=== PATIENT | female | born 1940 | race Caucasian/White ===

== ENCOUNTER 2018-11-29 09:37 | Inpatient (IN) ==
[2018-11-29 10:31] LABS: Basophils # 0.1 10*3/uL (0.0-0.2); Basophils % 1.8 % (0.0-0.8); Eosinophils # 0.7 10*3/uL (0.0-0.87); Eosinophils % 10.5 % (0.00-10.9); Hematocrit 30.9 VOL% (35.7-47.0); Hemoglobin 8.8 GM/DL (12.0-16.0); Immature Granulocytes % 0.3 %; Immature Granulocytes Absolute 0.02 #; Lymphocytes # 1.9 10*3/uL (1.4-4.0); Lymphocytes % 28.2 % (21.3-54.2); Mean Corpuscular HGB Conc 28.5 GM/DL (32-36); Mean Platelet Volume 10.2 FL (9.6-12.0); Monocytes % 8.1 % (1.7-12.7); Neutrophils % 51.1 % (38.7-73.9); Platelet Count 339 T/CUMM (130-400); Red Blood Count 4.68 MC/CUMM (3.8-5.5); Red Cell Distribution Width 23.1 % (9.3-17.3); White Blood Count 6.6 T/CUMM (4-12)
[2018-11-29 10:38] LABS: PT Patient Result 10.6 SECS; Partial Thromboplastin Time 22.9 SECS (0-40)
[2018-11-29 10:49] LABS: Alanine Aminotransferase 30 U/L (13-56); Albumin 3.7 G/DL (3.4-5.0); Alkaline Phosphatase 40 U/L (45-117); Aspartate Amino Transferase 20 U/L (0-37); Bilirubin,Total < 0.39 MG/DL (0.2-1.0); Blood Urea Nitrogen 20 MG/DL (7-18); Calcium 9.2 MG/DL (8.5-10.1); Glucose 192 MG/DL (74-106); Osmolality,Calculated 284.5 MOS/KG (273-304); Troponin I < 0.015 NG/ML (0.00-0.045)
[2018-11-29 10:54] LABS: Band Neutrophils 2 % (0-10); Eosinophils 16 % (0-10); Lymphocytes 28 % (20-55); Platelet Estimate Normal; Segmented Neutrophils 49 % (50-85); Total Cells Counted 100
[2018-11-29 10:55] LABS: Anisocytosis 1+; Poikilocytosis Slight
[2018-11-29 11:05] LABS: Apearance,Urine CLOUDY (Clear); Bilirubin,Urine Negative (Negative); Blood, Urine Negative (Negative); Glucose,Urine (UA) Negative (Negative); Hyaline Casts,Urine 4 /LPF (0-3); Ketones,Urine 5 mg/dL (Negative); Mucus,Urine Occasional /LPF (Occasional); Nitrite,Urine Negative (Negative); Protein,Urine Negative; RBC,Urine 2 /HPF (0-4); Squamous Epithelial Cell,Urine Occasional /HPF (0-10); Urine Color Yellow (Yellow); Urine Specific Gravity 1.024 (1.001-1.035); Urine Urobilinogen < 2.0 EU/DL (0.2-1.0); WBC,Urine 6 /HPF (0-6)
[2018-11-29 11:26] LABS: Barbiturates Screen,Urine Negative (Negative); Benzodiazepines Screen,Urine Negative (Negative); Cannabinoid Screen,Urine Negative (Negative); Opiate Screen,Urine Positive (Negative); Phencyclidine Screen,Urine Negative (Negative)
[2018-11-29] MEDS ORDERED: ONDANSETRON 4 MG/2 ML VIAL IV PRN (13:00)
[2018-11-29] MEDS ORDERED: ACETAMINOPHEN 325 MG TABLET PO PRN (13:00)
[2018-11-29] MEDS ORDERED: BISACODYL 5 MG TABLET PO PRN (13:00)
[2018-11-29] MEDS ORDERED: DOCUSATE SODIUM 100 MG CAPSULE PO PRN (13:00)
[2018-11-29] MEDS: SODIUM CHLORIDE 0.9% 1,000 ML IV SCH (13:30)
[2018-11-29] MEDS: PANTOPRAZOLE 40 MG TABLET PO SCH (13:30)
[2018-11-29 13:51] LABS: Risk Ratio 2.77; Thyroid Stimulating Hormone 0.469 uIU/ml (0.358-3.74); VLDL CHOLESTEROL 40.6 MG/DL
[2018-11-29] MEDS: CLOPIDOGREL 75 MG TABLET PO SCH (15:53)
[2018-11-29] MEDS: CALCIUM (CARBONATE) 600 MG TABLET PO SCH (16:16)
[2018-11-29] MEDS: NITROFURANTOIN MACROCRYSTALS 50 MG CAPSULE PO SCH (20:29)
[2018-11-29] MEDS: APIXABAN 2.5 MG TABLET PO SCH (20:36)
[2018-11-29] MEDS: GABAPENTIN 300 MG CAPSULE PO SCH (20:37)
[2018-11-29] MEDS ORDERED: SIMVASTATIN 20 MG TABLET PO SCH (21:00)
[2018-11-30 05:38] LABS: Basophils # 0.1 10*3/uL (0.0-0.2); Basophils % 1.7 % (0.0-0.8); Eosinophils # 0.7 10*3/uL (0.0-0.87); Eosinophils % 10.3 % (0.00-10.9); Immature Granulocytes % 0.3 %; Immature Granulocytes Absolute 0.02 #; Lymphocytes # 2.9 10*3/uL (1.4-4.0); Lymphocytes % 40.5 % (21.3-54.2); Mean Corpuscular HGB Conc 28.6 GM/DL (32-36); Mean Platelet Volume 10.2 FL (9.6-12.0); Neutrophils % 38.2 % (38.7-73.9); Platelet Count 354 T/CUMM (130-400); Red Blood Count 4.24 MC/CUMM (3.8-5.5); Red Cell Distribution Width 23.1 % (9.3-17.3); White Blood Count 7.2 T/CUMM (4-12)
[2018-11-30 06:02] LABS: Eosinophils 8 % (0-10); Hypochromasia 1+; Lymphocytes 44 % (20-55); Ovalocytes Slight; Platelet Estimate Adequate; Segmented Neutrophils 41 % (50-85); Total Cells Counted 100
[2018-11-30 06:03] LABS: Calcium 8.8 MG/DL (8.5-10.1)
[2018-11-30] MEDS: SODIUM CHLORIDE 0.9% 1,000 ML IV SCH ×2 (06:42→20:22)
[2018-11-30] MEDS: LEVOTHYROXINE 125 MCG TABLET PO SCH (06:42)
[2018-11-30] MEDS ORDERED: PROBENECID/COLCHICINE 500-0.5 MG TABLET PO SCH (09:00)
[2018-11-30] MEDS: APIXABAN 2.5 MG TABLET PO SCH ×2 (10:02→20:19)
[2018-11-30] MEDS: LOSARTAN/HCTZ 50-12.5 MG TABLET PO SCH (10:02)
[2018-11-30] MEDS: ASPIRIN EC 81 MG TABLET PO SCH (10:02)
[2018-11-30] MEDS: LOSARTAN 50 MG TABLET PO SCH (10:02)
[2018-11-30] MEDS: ROSUVASTATIN 20 MG TABLET PO SCH (10:02)
[2018-11-30] MEDS: PANTOPRAZOLE 40 MG TABLET PO SCH (10:03)
[2018-11-30] MEDS: CALCIUM (CARBONATE) 600 MG TABLET PO SCH (14:04)
[2018-11-30] MEDS: CLOPIDOGREL 75 MG TABLET PO SCH (14:04)
[2018-11-30] MEDS: NITROFURANTOIN MACROCRYSTALS 50 MG CAPSULE PO SCH (20:19)
[2018-11-30] MEDS: GABAPENTIN 300 MG CAPSULE PO SCH (20:19)
[2018-12-01 05:30] LABS: Basophils # 0.1 10*3/uL (0.0-0.2); Basophils % 1.9 % (0.0-0.8); Eosinophils # 0.6 10*3/uL (0.0-0.87); Eosinophils % 10.8 % (0.00-10.9); Hematocrit 24.2 VOL% (35.7-47.0); Hemoglobin 6.9 GM/DL (12.0-16.0); Immature Granulocytes % 0.3 %; Immature Granulocytes Absolute 0.02 #; Lymphocytes # 2.3 10*3/uL (1.4-4.0); Lymphocytes % 38.9 % (21.3-54.2); Mean Corpuscular HGB Conc 28.5 GM/DL (32-36); Mean Corpuscular Volume 65.1 FL (87-102); Monocytes % 8.9 % (1.7-12.7); Neutrophils % 39.2 % (38.7-73.9); Platelet Count 278 T/CUMM (130-400); Red Blood Count 3.72 MC/CUMM (3.8-5.5); Red Cell Distribution Width 22.5 % (9.3-17.3); White Blood Count 5.8 T/CUMM (4-12)
[2018-12-01 05:57] LABS: Hypochromasia 2+; Ovalocytes Slight; Platelet Estimate Adequate
[2018-12-01 06:00] LABS: Osmolality,Calculated 287.8 MOS/KG (273-304)
[2018-12-01] MEDS: LEVOTHYROXINE 125 MCG TABLET PO SCH (06:18)
[2018-12-01] MEDS: SODIUM CHLORIDE 0.9% 1,000 ML IV SCH (09:55)
[2018-12-01] MEDS: ROSUVASTATIN 20 MG TABLET PO SCH (09:55)
[2018-12-01] MEDS: APIXABAN 2.5 MG TABLET PO SCH (09:55)
[2018-12-01] MEDS: PANTOPRAZOLE 40 MG TABLET PO SCH (09:55)
[2018-12-01] MEDS: LOSARTAN/HCTZ 50-12.5 MG TABLET PO SCH (09:55)
[2018-12-01] MEDS: LOSARTAN 50 MG TABLET PO SCH (09:55)
[2018-12-01] MEDS: ASPIRIN EC 81 MG TABLET PO SCH (09:55)
[2018-12-01] MEDS: CLOPIDOGREL 75 MG TABLET PO SCH (16:01)
[2018-12-01] MEDS: CALCIUM (CARBONATE) 600 MG TABLET PO SCH (16:01)
[2018-12-01 16:39] VITALS: BP 158/81
== END 2018-12-01 18:26 | disposition home or self-care (01) | DRG 66 ==
LOC: N.EDINP 09:37 → N.ED 09:37 → SUATTDRO 12:49 → N.2E 15:56
PROVIDERS: ADMIT Internal Medicine

== ENCOUNTER 2019-01-04 11:34 | Inpatient (IN) ==
[2019-01-04] MEDS ORDERED: SODIUM CHLORIDE 0.9% 1,000 ML IV PRN (13:01)
[2019-01-04 14:19] LABS: % Iron Saturation 2.8 % (18-50); Alanine Aminotransferase 27 U/L (13-56); Albumin 3.7 G/DL (3.4-5.0); Alkaline Phosphatase 34 U/L (45-117); Aspartate Amino Transferase 20 U/L (0-37); Bilirubin,Total < 0.39 MG/DL (0.2-1.0); Blood Urea Nitrogen 25 MG/DL (7-18); Calcium 8.7 MG/DL (8.5-10.1); Ferritin 8.4 ng/ml (8-252); Glucose 97 MG/DL (74-106); Iron 12 UG/DL (50-170); Iron Binding Capacity 428 UG/DL (250-450); Osmolality,Calculated 284.3 MOS/KG (273-304)
[2019-01-04 14:27] LABS: Folate > 24.0 NG/ML (5.4-24.0); Vitamin B12 442 PG/ML (211-911)
[2019-01-04] MEDS ORDERED: GLUCAGON 1 MG VIAL IM PRN (15:20)
[2019-01-04] MEDS ORDERED: DEXTROSE 50% 25 GM/50 ML VIAL IV PRN (15:20)
[2019-01-04] MEDS ORDERED: ONDANSETRON 4 MG/2 ML VIAL IV PRN (15:20)
[2019-01-04] MEDS ORDERED: ACETAMINOPHEN 325 MG TABLET PO PRN (15:20)
[2019-01-04] MEDS ORDERED: BISACODYL 5 MG TABLET PO PRN (15:20)
[2019-01-04] MEDS: INSULIN LISPRO 100 UNIT/ML SUBCUT SCH ×2 (15:32→20:30)
[2019-01-04 15:41] LABS: Basophils # 0.1 10*3/uL (0.0-0.2); Basophils % 1.4 % (0.0-0.8); Eosinophils # 0.2 10*3/uL (0.0-0.87); Eosinophils % 4.1 % (0.00-10.9); Hematocrit 22.9 VOL% (35.7-47.0); Immature Granulocytes % 0.3 %; Immature Granulocytes Absolute 0.02 #; Lymphocytes # 1.6 10*3/uL (1.4-4.0); Lymphocytes % 28.1 % (21.3-54.2); Mean Corpuscular HGB Conc 27.9 GM/DL (32-36); Mean Corpuscular Volume 62.9 FL (87-102); Mean Platelet Volume 9.8 FL (9.6-12.0); Monocytes % 7.9 % (1.7-12.7); Neutrophils % 58.2 % (38.7-73.9); Platelet Count 328 T/CUMM (130-400); Red Blood Count 3.64 MC/CUMM (3.8-5.5); Red Cell Distribution Width 23.6 % (9.3-17.3); White Blood Count 5.8 T/CUMM (4-12)
[2019-01-04 15:48] LABS: Hemoglobin 6.4 GM/DL (12.0-16.0)
[2019-01-04 16:09] LABS: Folate > 24.0 NG/ML (5.4-24.0); Vitamin B12 532 PG/ML (211-911)
[2019-01-04 16:34] LABS: Platelet Estimate Normal
[2019-01-04 16:35] LABS: Hypochromasia 2+; Microcytosis 2+; Ovalocytes Few
[2019-01-04] MEDS: PANTOPRAZOLE 40 MG TABLET PO SCH (17:13)
[2019-01-04] MEDS: NITROFURANTOIN MACROCRYSTALS 50 MG CAPSULE PO SCH (20:31)
[2019-01-04] MEDS: GABAPENTIN 300 MG CAPSULE PO SCH (20:31)
[2019-01-04] MEDS: GLIMEPIRIDE 2 MG TABLET PO SCH (20:31)
[2019-01-04] MEDS: CYCLOBENZAPRINE 10 MG TABLET PO SCH (20:31)
[2019-01-04 23:20] LABS: Sedimentation Rate-Westergren 11 MM/HR (0-30)
[2019-01-05 04:47] LABS: Basophils # 0.1 10*3/uL (0.0-0.2); Basophils % 1.6 % (0.0-0.8); Eosinophils # 0.5 10*3/uL (0.0-0.87); Eosinophils % 9.3 % (0.00-10.9); Hematocrit 26.6 VOL% (35.7-47.0); Hemoglobin 7.8 GM/DL (12.0-16.0); Immature Granulocytes % 0.2 %; Immature Granulocytes Absolute 0.01 #; Lymphocytes # 2.2 10*3/uL (1.4-4.0); Lymphocytes % 39.7 % (21.3-54.2); Mean Corpuscular HGB Conc 29.3 GM/DL (32-36); Mean Corpuscular Volume 67.3 FL (87-102); Mean Platelet Volume 9.9 FL (9.6-12.0); Monocytes % 11.7 % (1.7-12.7); Neutrophils % 37.5 % (38.7-73.9); Platelet Count 286 T/CUMM (130-400); Red Blood Count 3.95 MC/CUMM (3.8-5.5); Red Cell Distribution Width 26.6 % (9.3-17.3); White Blood Count 5.6 T/CUMM (4-12)
[2019-01-05 04:57] LABS: Calcium 8.1 MG/DL (8.5-10.1); Osmolality,Calculated 288.8 MOS/KG (273-304)
[2019-01-05 05:04] LABS: Calcium 8.2 MG/DL (8.5-10.1); Osmolality,Calculated 288.8 MOS/KG (273-304)
[2019-01-05 05:52] LABS: Band Neutrophils 3 % (0-10); Eosinophils 11 % (0-10); Lymphocytes 35 % (20-55); Platelet Estimate Normal; Segmented Neutrophils 41 % (50-85); Total Cells Counted 100
[2019-01-05 05:53] LABS: Hypochromasia 2+
[2019-01-05] MEDS: LEVOTHYROXINE 125 MCG TABLET PO SCH (06:37)
[2019-01-05] MEDS: INSULIN LISPRO 100 UNIT/ML SUBCUT SCH ×4 (08:33→23:08)
[2019-01-05] MEDS ORDERED: PANTOPRAZOLE 40 MG TABLET PO SCH (09:00)
[2019-01-05] MEDS ORDERED: FERRIC GLUCONATE COMPLEX 125 MG in SODIUM CHLORIDE 0.9% 100 ML IV ONE (09:00)
[2019-01-05] MEDS: GLIMEPIRIDE 2 MG TABLET PO SCH ×2 (09:24→21:59)
[2019-01-05] MEDS: ASPIRIN EC 81 MG TABLET PO SCH (09:24)
[2019-01-05] MEDS: PANTOPRAZOLE 40 MG TABLET PO SCH ×2 (09:25→22:00)
[2019-01-05] MEDS: ROSUVASTATIN 10 MG TABLET PO SCH (09:34)
[2019-01-05] MEDS: PROBENECID/COLCHICINE 500-0.5 MG TABLET PO SCH (09:54)
[2019-01-05 10:42] LABS: Hemoglobin A1 (Alkaline) 98.1 % (96.5-98.5); Hemoglobin A2 (Alkaline) 1.9 % (1.5-3.5)
[2019-01-05] MEDS ORDERED: CLOPIDOGREL 75 MG TABLET PO SCH (15:00)
[2019-01-05] MEDS: NITROFURANTOIN MACROCRYSTALS 50 MG CAPSULE PO SCH (21:59)
[2019-01-05] MEDS: CYCLOBENZAPRINE 10 MG TABLET PO SCH (21:59)
[2019-01-05] MEDS: GABAPENTIN 300 MG CAPSULE PO SCH (22:00)
[2019-01-06 04:08] LABS: Basophils # 0.1 10*3/uL (0.0-0.2); Basophils % 1.7 % (0.0-0.8); Eosinophils # 0.7 10*3/uL (0.0-0.87); Eosinophils % 11.4 % (0.00-10.9); Hematocrit 26.7 VOL% (35.7-47.0); Hemoglobin 7.8 GM/DL (12.0-16.0); Immature Granulocytes % 0.3 %; Immature Granulocytes Absolute 0.02 #; Lymphocytes % 33.4 % (21.3-54.2); Mean Corpuscular HGB Conc 29.2 GM/DL (32-36); Mean Corpuscular Volume 67.8 FL (87-102); Mean Platelet Volume 9.9 FL (9.6-12.0); Monocytes % 10.3 % (1.7-12.7); Neutrophils % 42.9 % (38.7-73.9); Platelet Count 290 T/CUMM (130-400); Red Blood Count 3.94 MC/CUMM (3.8-5.5)
[2019-01-06 04:33] LABS: Calcium 8.1 MG/DL (8.5-10.1)
[2019-01-06 04:41] LABS: Band Neutrophils 1 % (0-10); Eosinophils 13 % (0-10); Lymphocytes 30 % (20-55); Myelocytes 1 %; Nucleated Red Blood Cells 1 (0-5); Platelet Estimate Normal; Segmented Neutrophils 51 % (50-85); Total Cells Counted 100
[2019-01-06 04:42] LABS: Hypochromasia 1+; Microcytosis 1+; Polychromasia Few
[2019-01-06] MEDS: LEVOTHYROXINE 125 MCG TABLET PO SCH (06:06)
[2019-01-06] MEDS: INSULIN LISPRO 100 UNIT/ML SUBCUT SCH ×2 (08:53→11:20)
[2019-01-06] MEDS: GLIMEPIRIDE 2 MG TABLET PO SCH (08:54)
[2019-01-06] MEDS: PANTOPRAZOLE 40 MG TABLET PO SCH (08:55)
[2019-01-06] MEDS: ROSUVASTATIN 10 MG TABLET PO SCH (08:55)
[2019-01-06] MEDS: ASPIRIN EC 81 MG TABLET PO SCH (08:55)
[2019-01-06] MEDS: PROBENECID/COLCHICINE 500-0.5 MG TABLET PO SCH (08:55)
[2019-01-06] MEDS ORDERED: FERROUS SULFATE ER 140 MG TABLET PO SCH (09:00)
[2019-01-06 11:34] VITALS: BP 144/83
== END 2019-01-06 12:28 | disposition home or self-care (01) | DRG 812 ==
LOC: N.2E → INTOOBSV 13:10 → SUATTDRO 13:10 → OBSVTOIN 13:10 → INTOOBSV 15:20 → SUATTDRO 16:16
PROVIDERS: ADMIT Internal Medicine; ATTEND Emergency Medicine